=== PATIENT | male | born 1960 | race Two or more races ===

== ENCOUNTER 2024-12-04 08:22 | Outpatient (CLI) | payer MEDICARE, MEDICAID ==
[2024-12-04 10:45] LABS: Blood Urea Nitrogen 14.0 mg/dL (9-23)
== END 2024-12-04 17:00 | disposition home or self-care (01) ==
LOC: LAB 08:22
PROVIDERS: ATTEND Urology
DX: N40.1 Benign prostatic hyperplasia with lower urinary tract symptoms (principal)
CPT/HCPCS: 36415; 82565; 84520